=== PATIENT | female | born 2000 | race Hispanic/Latino ===

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

== ENCOUNTER 2022-04-14 21:41 | Emergency (ER) | payer OTHER ==
[~2022-04-14] VITALS: Ht 152.4 cm; Wt 49.0 kg
[2022-04-14] MEDS ORDERED: IBUPROFEN 600 MG TAB PO STA (21:55)
[2022-04-14] MEDS ORDERED: NAPROSYN500 MG PO (23:27)
== END 2022-04-14 23:51 | disposition home or self-care (01) ==
LOC: ER 21:46
DX: M79.671 Pain in right foot (principal); W19.XXXA Unspecified fall, initial encounter
CPT/HCPCS: 99283